=== PATIENT | female | born 1950 | race Caucasian/White ===

== ENCOUNTER 2020-11-29 09:56 | Inpatient (IN) | payer MEDICARE, OTHER ==
[2020-11-29] MEDS ORDERED: SODIUM CHLORIDE 0.9% 500 ML 500 ML IV STA (10:03)
--- NOTE | 2020-11-29 10:36 | ED ---
General Adult HPI - General Chief complaint: Seizure Stated complaint: Seizure Time Seen by Provider: 11/29/20 10:01 Source: patient, RN notes reviewed, old records reviewed Mode of arrival: ambulatory Limitations: no limitations - History of Present Illness Initial comments: 70-year-old female presenting with suspected seizure activity, unresponsiveness. Patient has history of dementia. She is currently living with her daughter. While eating breakfast this morning she became unresponsive, had right-sided shaking and this progressed to generalized convulsion. She presents to the emergency department by EMS. She is alert but nonverbal. The patient does have some speech abnormalities at baseline secondary to her dementia and daughter states she speaks in short sentences normally. There was no significant trauma reported. There is no previous seizure activity. - Related Data Allergies Allergy/AdvReac Type Severity Reaction Status Date / Time lidocaine Allergy Unknown Verified 11/29/20 10:15 Review of Systems ROS Statement: Those systems with pertinent positive or pertinent negative responses have been documented in the HPI. ROS Other: All systems not noted in ROS Statement are negative. Past Medical History Past Medical History: Dementia, Thyroid Disorder History of Any Multi-Drug Resistant Organisms: None Reported Past Surgical History: Unable to Obtain Smoking Status: Never smoker Past Alcohol Use History: None Reported Past Drug Use History: None Reported General Exam Limitations: no limitations General appearance: alert, in distress Head exam: Present: atraumatic, normocephalic Eye exam: Present: normal appearance, PERRL ENT exam: Present: normal exam Neck exam: Present: normal inspection. Absent: tenderness, meningismus Respiratory exam: Present: normal lung sounds bilaterally. Absent: respiratory distress, wheezes Cardiovascular Exam: Present: regular rate, normal rhythm GI/Abdominal exam: Present: soft. Absent: distended, tenderness, guarding Neurological exam: Present: alert, other (Patient will follow commands. She is moving extremities symmetrically but does not have full strength throughout.). Absent: oriented X3 Psychiatric exam: Present: anxious Skin exam: Present: warm, dry. Absent: cyanosis, diaphoretic Course Vital Signs 11/29/20 11/29/20 10:03 11:49 Temperature 97.6 F Pulse Rate 62 53 L Respiratory 18 18 Rate Blood Pressure 117/66 129/87 O2 Sat by Pulse 98 100 Oximetry EKG Findings - EKG Comments: EKG Findings:: EKG: Sinus bradycardia, rate 58, CO interval 146, QRS duration 64, QTC 463, no ST segment elevation, baseline artifact in V3. Medical Decision Making - Medical Decision Making 62-year-old female presenting with altered mental status, loss consciousness, suspected seizure. History does support new-onset seizure in this patient. Patient is postictal upon arrival. She has a nonfocal neurologic findings and will follow some simple commands. During her stay in the emergency department she has returned to her baseline mental status, without pain complaints, able to answer simple questions. Her daughter is at bedside. She has a normal CBC, normal CMP, head CT is performed which is negative for intracranial hemorrhage or mass effect. I suspect new onset seizure. She will be admitted for close observation and neurology on consultation. - Lab Data Result diagrams: 11/29/20 10:26 11/29/20 10:26 Lab Results 11/29/20 11/29/20 11/29/20 Range/Units 10:26 10:26 10:26 WBC 3.8 (3.8-10.6) k/uL RBC 4.73 (3.80-5.40) m/uL Hgb 15.1 (11.4-16.0) gm/dL Hct 43.6 (34.0-46.0) % MCV 92.3 (80.0-100.0) fL MCH 31.9 (25.0-35.0) pg MCHC 34.6 (31.0-37.0) g/dL RDW 12.1 (11.5-15.5) % Plt Count 257 (150-450) k/uL MPV 8.7 Neutrophils % 62 % Lymphocytes % 26 % Monocytes % 8 % Eosinophils % 1 % Basophils % 1 % Neutrophils # 2.4 (1.3-7.7) k/uL Lymphocytes # 1.0 (1.0-4.8) k/uL Monocytes # 0.3 (0-1.0) k/uL Eosinophils # 0.1 (0-0.7) k/uL Basophils # 0.0 (0-0.2) k/uL PT (9.0-12.0) sec INR (<1.2) APTT (22.0-30.0) sec Sodium 139 (137-145) mmol/L Potassium 4.1 (3.5-5.1) mmol/L Chloride 109 H (98-107) mmol/L Carbon Dioxide 21 L (22-30) mmol/L Anion Gap 9 mmol/L BUN 21 H (7-17) mg/dL Creatinine 0.74 (0.52-1.04) mg/dL Est GFR (CKD-EPI)AfAm >90 (>60 ml/min/1.73 sqM) Est GFR (CKD-EPI)NonAf 84 (>60 ml/min/1.73 sqM) Glucose 122 H (74-99) mg/dL Plasma Lactic Acid Oniel 1.9 (0.7-2.0) mmol/L Calcium 10.2 (8.4-10.2) mg/dL Magnesium 2.2 (1.6-2.3) mg/dL Total Bilirubin 0.8 (0.2-1.3) mg/dL AST 30 (14-36) U/L ALT 20 (4-34) U/L Alkaline Phosphatase 55 (38-126) U/L Troponin I (0.000-0.034) ng/mL Total Protein 6.9 (6.3-8.2) g/dL Albumin 4.1 (3.5-5.0) g/dL 11/29/20 11/29/20 Range/Units 10:26 10:26 WBC (3.8-10.6) k/uL RBC (3.80-5.40) m/uL Hgb (11.4-16.0) gm/dL Hct (34.0-46.0) % MCV (80.0-100.0) fL MCH (25.0-35.0) pg MCHC (31.0-37.0) g/dL RDW (11.5-15.5) % Plt Count (150-450) k/uL MPV Neutrophils % % Lymphocytes % % Monocytes % % Eosinophils % % Basophils % % Neutrophils # (1.3-7.7) k/uL Lymphocytes # (1.0-4.8) k/uL Monocytes # (0-1.0) k/uL Eosinophils # (0-0.7) k/uL Basophils # (0-0.2) k/uL PT 10.1 (9.0-12.0) sec INR 0.9 (<1.2) APTT 19.9 L (22.0-30.0) sec Sodium (137-145) mmol/L Potassium (3.5-5.1) mmol/L Chloride (98-107) mmol/L Carbon Dioxide (22-30) mmol/L Anion Gap mmol/L BUN (7-17) mg/dL Creatinine (0.52-1.04) mg/dL Est GFR (CKD-EPI)AfAm (>60 ml/min/1.73 sqM) Est GFR (CKD-EPI)NonAf (>60 ml/min/1.73 sqM) Glucose (74-99) mg/dL Plasma Lactic Acid Oniel (0.7-2.0) mmol/L Calcium (8.4-10.2) mg/dL Magnesium (1.6-2.3) mg/dL Total Bilirubin (0.2-1.3) mg/dL AST (14-36) U/L ALT (4-34) U/L Alkaline Phosphatase (38-126) U/L Troponin I <0.012 (0.000-0.034) ng/mL Total Protein (6.3-8.2) g/dL Albumin (3.5-5.0) g/dL Disposition Clinical Impression: New onset seizure Disposition: ADMITTED IP TO THIS [facility] Instructions (If sedation given, give patient instructions): Seizure/Epilepsy Discharge Instructions & Follow-Up Is patient prescribed a controlled substance at d/c from ED?: No Referrals: None,Stated [REFERRING] - 1-2 days Decision to Admit Reason: Admit from EC Decision Date: 11/29/20 Decision Time: 12:13
[2020-11-29 11:06] LABS: INR 0.9 (<1.2); Prothrombin Time 10.1 sec (9.0-12.0)
[2020-11-29 11:18] LABS: Basophils % (A) 1 %; Eosinophils # (A) 0.1 k/uL (0-0.7); Eosinophils % (A) 1 %; HCT 43.6 % (34.0-46.0); HGB 15.1 gm/dL (11.4-16.0); Lymphocytes % (A) 26 %; MCH 31.9 pg (25.0-35.0); MCHC 34.6 g/dL (31.0-37.0); MCV 92.3 fL (80.0-100.0); Mean Platelet Volume 8.7; Monocytes # (A) 0.3 k/uL (0-1.0); Monocytes % (A) 8 %; Neutrophils # (A) 2.4 k/uL (1.3-7.7); Neutrophils % (A) 62 %; Platelet Count 257 k/uL (150-450); RBC 4.73 m/uL (3.80-5.40); RDW 12.1 % (11.5-15.5); WBC 3.8 k/uL (3.8-10.6)
[2020-11-29 11:19] LABS: ALT 20 U/L (4-34); AST 30 U/L (14-36); African American GFR (CKD) >90 (>60 ml/min/1.73 sqM); Albumin 4.1 g/dL (3.5-5.0); Alkaline Phosphatase 55 U/L (38-126); Anion Gap 9 mmol/L; Blood Urea Nitrogen 21 mg/dL (7-17); Calcium 10.2 mg/dL (8.4-10.2); Carbon Dioxide 21 mmol/L (22-30); Chloride 109 mmol/L (98-107); Glucose 122 mg/dL (74-99); Magnesium 2.2 mg/dL (1.6-2.3); Non-African American GFR(CKD) 84 (>60 ml/min/1.73 sqM); Potassium 4.1 mmol/L (3.5-5.1); Sodium 139 mmol/L (137-145); Total Bilirubin 0.8 mg/dL (0.2-1.3); Total Protein 6.9 g/dL (6.3-8.2)
[2020-11-29 11:26] LABS: Partial Thromboplastin Time 19.9 sec (22.0-30.0)
--- NOTE | 2020-11-29 11:50 | CT ---
EXAMINATION TYPE: CT brain wo con DATE OF EXAM: 11/29/2020 COMPARISON: None HISTORY: Seizure CT DLP: 1111.[address] of the brain was performed. The ventricles, basal cisterns and sulci overlying the cerebral convexities demonstrate moderate enla rgement. There is no evidence for intracranial hemorrhage or sulcal effacement. There is decreased attenuation about the periventricular white matter and deep white matter of both c erebral hemispheres, compatible with chronic small vessel ischemia. Differential diagnosis does inclu de demyelination. No mass effects are seen.No midline shift. Osseous calvarium is intact. If symptoms persist consider MRI. IMPRESSION: 1. Age related atrophic and chronic small vessel ischemic change without acute intracranial process s een at this time.
--- NOTE | 2020-11-29 11:58 | XR ---
EXAMINATION TYPE: XR chest 1V portable DATE OF EXAM: 11/29/2020 COMPARISON: NONE HISTORY: Syncope TECHNIQUE: Single frontal view of the chest is obtained. FINDINGS: There is no focal air space opacity, pleural effusion, or pneumothorax seen. The cardiac silhouette size is within normal limits. Patient is rotated. Prominent lung volumes may be indicative of underlying COPD. Interstitium is mildly increased. Aorta is dense. Biapical pleural thickening is noted. There are overlying artifacts. The osseous structures are intact. IMPRESSION: No acute process.
[2020-11-29] MEDS ORDERED: NALOXONE 0.4 MG/ML 1 ML VIAL IV PRN (12:11)
[2020-11-29] MEDS ORDERED: levETIRAcetam IV 1,000 MG in SALINE 1 100ML.BAG IVPB STA (12:26)
[2020-11-29] MEDS: SODIUM CHLORIDE 0.9% 1,000 ML IV SCH (12:37)
[2020-11-29] MEDS ORDERED: LORazepam 2 MG/ML INJ IV PRN (14:35)
--- NOTE | 2020-11-29 15:22 | P.CNNES ---
History of Present Illness Consult date: 11/29/20 Requesting physician: Angel Benedict Reason for Consult: new onset seizure History of Present Illness: This is a 70-year-old woman with medical history of advanced dementia, hypothyroidism presented emergency department on 11/29/2020 after unresponsive and seizure-like activity. History is obtained from patient's daughter (Maya who is at bedside). It seems that the patient lives with her daughter and while she was eating breakfast this morning she became unresponsive she had right- sided that shaken and this progressed to generalized convulsion. The patient has loss of consiciouness. Pre the daughter the jerking episode lasted for 30 seconds and was post-ictal for few hours. Patient did not have any trauma to the head. As a result EMS was contacted. Per the daughter the patient has dementia and she speaks in short sentences baseline. She is alert oriented X1 (self only). Patient does not have any seizure in the past. No history of strokes or TIA's in the past the daughter is aware of. The patient is suppose to follow-up with a neurologist over [place], [place] end of November 2020. Patient is on Aricept 10 mg daily for dementia. Otherwise she is on multivitamins and Synthroid. Some of the basic workup in the hospital consisted of: Initial vital signs was blood pressure of 117/66, heart rate of 62, respiratory of 18, temperature of 97.6 Fahrenheit oral pulse ox of 98% room air. CBC with differential is unremarkable. Serum glucose is 122, sodium is 139, magnesium is 2.2, calcium 7.2. CT of the head is reported as age-related atrophic and chronic small vessel ischemic change without acute intracranial process seen at this time. Upon reviewing the CT of the head I felt the patient has diffuse generalized atrophy. EKG is reported as sinus bradycardia. Otherwise normal EKG. Review of Systems Review of system: Is limited because of her cooperation, but the peritent positive and negative per HPI. Past Medical History Past Medical History: Dementia, Thyroid Disorder History of Any Multi-Drug Resistant Organisms: None Reported Past Surgical History: Unable to Obtain Smoking Status: Never smoker Past Alcohol Use History: None Reported Past Drug Use History: None Reported Medications and Allergies Home Medications Medication Instructions Recorded Confirmed Type Donepezil [Aricept] 10 mg PO DAILY 11/29/20 11/29/20 History Levothyroxine Sodium [Synthroid] 100 mcg PO DAILY 11/29/20 11/29/20 History Multivitamins, Thera [Multivitamin 1 tab PO DAILY 11/29/20 11/29/20 History (formulary)] Allergies Allergy/AdvReac Type Severity Reaction Status Date / Time erythromycin base Allergy Rash/Hives Verified 11/29/20 12:35 [From Erythrocin] lidocaine AdvReac low bp & HR Verified 11/29/20 12:35 Physical Examination - Vital Signs Vital Signs: Vital Signs Temp Pulse Resp BP Pulse Ox 11/29/20 11:49 53 L 18 129/87 100 11/29/20 10:03 97.6 F 62 18 117/66 98 Intake and Output 11/28/20 11/29/20 11/29/20 22:59 06:59 14:59 Other: Weight 62.324 kg GENERAL: The patient is lying in bed and is not in acute distress. CHEST: The heart rate is regular rate rhythm. No murmurs to auscultation. No carotid bruit bilaterally. LUNG: Clear to auscultation bilaterally no wheezing noted throughout. Not labored breathing. ABDOMEN/GI: Bowel sounds present in all 4 quadrants. No tenderness to palpation throughout. NEUROLOGICAL: Higher mental function: The patient is awake, alert, oriented to self only (baseline). Patient is unable to name objects (pen, watch or glasses). Patient is following simple commands. Language is very limited. Does not appear she has neglect. Cranial nerves: The pupils are round, equal and reactive to light. Extraocular movement is tracking throughout the room and no nystagmus. No facial weakness. No dysarthria is noted. Otherwise could not assess rest of cranial nerves because of cooperaiton. Motor: Gait is deferred. The strength is moving all extremities above gravity without focality (per daughter patient has a right old shoulder problem). Normal tone and bulk. Cerebellum: Could not assess. Sensation: Could not asses. Reflexes (right/left): 2+ throughout except ankles are 1+. Plantars are mute bilaterally. Results - Laboratory Findings CBC and BMP: 11/29/20 10:26 11/29/20 10:26 Abnormal Lab Findings: Abnormal Labs 11/29/20 11/29/20 10:26 10:26 APTT 19.9 L Chloride 109 H Carbon Dioxide 21 L BUN 21 H Glucose 122 H Assessment and Plan Assessment: New onset seizure (but seems somewhat unsusual since nothing is reactive if she had GTC: wbc, plasma lactic vein, creatnine which are normal. This is not absolute). Advance Dementia with language deficit (is oriented X1. self). Hypothyroidism Plan: In the ED the patient was given Keppra 1 g once. I spoke with the daughter and will proceed with antiepileptic drug as maintenance rather than wait for another seizure. I will start Depakote 250mg 1 tab bid (not keppra since can cause behavioral issues). I ordered a routine EEG. Per the daughter the patient will not handle MRI Brain and will consider as outpatient. She is on seizure precaution seizure pads. Placed on Vitamin D3 daily since antiepileptic drugs can cause osteoporosis. Neuro every 4 hours neuro checks We'll defer the rest of the medical management to the primary team. Upon discharge the patient needs to follow up with a neurologist (she has an appointment by end of November 2020 at [place], [place]). The plan is discussed with her daughter and the primary team. Thank you for the consultation. Allan Hanks M.D. Neuro-hospitalist Time with Patient: Greater than 30
--- NOTE | 2020-11-29 17:07 | EEG ---
ELECTROENCEPHALOGRAM REPORT DATE OF SERVICE: 11/29/2020. CLINICAL HISTORY: This is a 70-year-old woman with a history of dementia who presented with new- onset seizure. The video EEG is obtained to evaluate for seizure epileptiform activity. RELEVANT MEDICATION: She received Keppra in the ED. EEG TYPE: A routine 21-channel EEG is performed with video using the 10/20 electrode placement system. DESCRIPTION: Wakefulness is obtained. During wakefulness, the background consists of posterior- dominant rhythm of low to moderate voltage of 6-7 hertz activity. At times the background consists of diffuse nonrhythmic [id number] voltage of theta as well as delta activity. There is no sleep architecture seen. There is no focal slowing seen. Interictal and ictal is none. ACTIVATION PROCEDURE: Photic stimulation did not evoke a posterior driving response. There is no abnormality during the photic stimulation. Hyperventilation is not performed. CLINICAL INTERPRETATION: This is an abnormal routine EEG. The background slowing is suggestive of moderate encephalopathy. There are no focal slowing, epileptiform discharges or seizure on the EEG. Clinical correlation is recommended. MMDON / MAYRAN: [id number] / DONNA
[2020-11-29] MEDS: ACETAMINOPHEN TAB 325 MG TAB PO PRN (17:41)
[2020-11-29] MEDS: CHOLECALCIFEROL 25 MCG (1000 IU) TABLET PO SCH (17:42)
[2020-11-29] MEDS: HEPARIN SODIUM,PORCINE/PF 5,000 UNIT/0.5 ML SYRINGE SQ SCH (19:54)
[2020-11-29] MEDS: DIVALPROEX 250 MG TABLET.DR PO SCH (19:55)
[2020-11-29] MEDS: FAMOTIDINE 20 MG/2 ML VIAL IV SCH (19:55)
[2020-11-29 20:17] VITALS: RESP 16
[2020-11-30] MEDS ORDERED: LEVOTHYROXINE 100 MCG TAB PO SCH (06:30)
[2020-11-30 07:59] VITALS: TEMP 98
[2020-11-30] MEDS: FAMOTIDINE 20 MG/2 ML VIAL IV SCH (08:37)
[2020-11-30] MEDS: DIVALPROEX 250 MG TABLET.DR PO SCH (08:42)
[2020-11-30] MEDS: CHOLECALCIFEROL 25 MCG (1000 IU) TABLET PO SCH (08:42)
[2020-11-30] MEDS: HEPARIN SODIUM,PORCINE/PF 5,000 UNIT/0.5 ML SYRINGE SQ SCH (08:42)
[2020-11-30] MEDS: ACETAMINOPHEN TAB 325 MG TAB PO PRN (08:42)
[2020-11-30] MEDS: SODIUM CHLORIDE 0.9% 1,000 ML IV SCH ×2 (08:43→13:51)
[2020-11-30] MEDS ORDERED: DONEPEZIL 10 MG TAB PO SCH (09:00)
--- NOTE | 2020-11-30 10:37 | P.HPIM ---
History of Present Illness This is a pleasant 70 years old female with past medical history of advanced dementia and hypothyroidism. Patient is poor historian and information were obtained from the daughter at bedside The daughter is her caregiver after her a few years ago as per daughter. Patient is confused, she does not know her name even when asked. As per daughter she does not ask for help to get food or to be cleaned S when somebody take care of her. She answers with". She is disoriented to the surrounding. She cannot manage her ADL or AIDL activities. Patient was sitting on her breakfast chair when she stumbled down and start shaking all over her body for about 45 seconds as per daughter was at her side and helped to hold her. Patient had no urine or bowel incontinence. No tongue biting. He was postictal for about 2 hours where she woke up in the emergency room. The patient cannot provide information and she denies any specific symptoms for me. No pain Review of Systems n/a patient is poor historian due to her dementia Past Medical History Past Medical History: Dementia, Thyroid Disorder History of Any Multi-Drug Resistant Organisms: None Reported Past Surgical History: Unable to Obtain Smoking Status: Never smoker Past Alcohol Use History: None Reported Past Drug Use History: None Reported - Past Family History Mother Family Medical History: CVA/TIA, Dementia Father Family Medical History: CVA/TIA Medications and Allergies Home Medications Medication Instructions Recorded Confirmed Type Donepezil [Aricept] 10 mg PO DAILY 11/29/20 11/29/20 History Levothyroxine Sodium [Synthroid] 100 mcg PO DAILY 11/29/20 11/29/20 History Multivitamins, Thera [Multivitamin 1 tab PO DAILY 11/29/20 11/29/20 History (formulary)] Allergies Allergy/AdvReac Type Severity Reaction Status Date / Time erythromycin base Allergy Rash/Hives Verified 11/29/20 12:35 [From Erythrocin] lidocaine AdvReac low bp & HR Verified 11/29/20 12:35 Physical Exam Vitals: Vital Signs Temp Pulse Resp BP Pulse Ox 11/29/20 11:49 53 L 18 129/87 100 11/29/20 10:03 97.6 F 62 18 117/66 98 Intake and Output 11/28/20 11/29/20 11/29/20 22:59 06:59 14:59 Other: Weight 62.324 kg -GENERAL: The patient is confused, not in any acute distress. Well developed, well nourished. HEENT: Pupils are round and equally reacting to light. EOMI. No scleral icterus. No conjunctival pallor. Normocephalic, atraumatic. No pharyngeal erythema. No thyromegaly. CARDIOVASCULAR: S1 and S2 present. No murmurs, rubs, or gallops. PULMONARY: Chest is clear to auscultation, no wheezing or crackles. ABDOMEN: Soft, nontender, nondistended, normoactive bowel sounds. No palpable organomegaly. MUSCULOSKELETAL: No joint swelling or deformity. EXTREMITIES: No cyanosis, clubbing, or pedal edema. NEUROLOGICAL: Gross neurological examination did not reveal any focal deficits. SKIN: No rashes. No petechiae Results CBC & Chem 7: 11/29/20 10:26 11/29/20 10:26 Labs: Abnormal Lab Results - Last 24 Hours (Table) 11/29/20 11/29/20 Range/Units 10:26 10:26 APTT 19.9 L (22.0-30.0) sec Chloride 109 H (98-107) mmol/L Carbon Dioxide 21 L (22-30) mmol/L BUN 21 H (7-17) mg/dL Glucose 122 H (74-99) mg/dL Assessment and Plan Assessment: Seizure, new onset Advanced dementia Hypothyroidism Plan: This is a pleasant 70 years old female who presents with seizure Neurology consult. EEG Patient has advanced dementia and I discussed with daughter at bedside she might be eligible for palliative consult and she agrees for the consult as an outpatient Labs and medication were reviewed.. Continue same treatment. Continue with symptomatic treatment. Resume home medication. Monitor lytes and vitals. DVT and GI prophylaxis. Further recommendations depends on the clinical course of the patient Prognosis is guarded
[2020-11-30 11:05] VITALS: BP 111/68; PULSE 69
--- NOTE | 2020-11-30 14:49 | P.PN ---
Subjective Progress Note Date: 11/30/20 Patient seen at bedside and she is accompanied with her daughter and she stated that the patient's about the same and no further seizure like activity. Objective - Vital Signs Vital signs: Vital Signs Temp 98.0 F 11/30/20 11:03 Pulse 69 11/30/20 11:03 Resp 16 11/30/20 11:03 BP 111/68 11/30/20 11:03 Pulse Ox 99 11/30/20 11:03 Intake & Output 11/29/20 11/30/20 11/30/20 18:59 06:59 18:59 Weight 62.324 kg Other: Voiding Method Toilet Toilet Diaper Diaper # Voids 1 # Bowel Movements 1 - Exam GENERAL: The patient is lying in bed and is not in acute distress. CHEST: The heart rate is regular rate rhythm. No murmurs to auscultation. No carotid bruit bilaterally. LUNG: Clear to auscultation bilaterally no wheezing noted throughout. Not labored breathing. ABDOMEN/GI: Bowel sounds present in all 4 quadrants. No tenderness to palpation throughout. NEUROLOGICAL: Higher mental function: The patient is awake, alert, oriented to self only (baseline). Patient is unable to name objects (pen, watch or glasses). Patient is following simple commands. Language is very limited. Does not appear she has neglect. Cranial nerves: The pupils are round, equal and reactive to light. Extraocular movement is tracking throughout the room and no nystagmus. No facial weakness. No dysarthria is noted. Otherwise could not assess rest of cranial nerves because of cooperaiton. Motor: Gait is deferred. The strength is moving all extremities above gravity without focality (per daughter patient has a right old shoulder problem). N ormal tone and bulk. Cerebellum: Could not assess. Sensation: Could not asses. Reflexes (right/left): 2+ throughout except ankles are 1+. Plantars are mute bilaterally. WORK-UP: CT of the head is reported as age-related atrophic and chronic small vessel ischemic change without acute intracranial process seen at this time. Upon reviewing the CT of the head I felt the patient has diffuse generalized atrophy. EKG is reported as sinus bradycardia. Otherwise normal EKG. Routine EEG on the 11/29/2020 and is an abnormal routine EEG. The background slowing suggestive of moderate encephalopathy. There are no focal slowing, epileptiform discharges or seizure on the EEG. - Labs CBC & Chem 7: 11/29/20 10:26 11/29/20 10:26 Assessment and Plan Assessment: New onset seizure (but seems somewhat unsusual since nothing is reactive if she had GTC: wbc, plasma lactic vein, creatnine which are normal. This is not absolute). Advance Dementia with language deficit (is oriented X1. self). Hypothyroidism Plan: Continue Depakote 250mg 1 tab bid (not keppra since can cause behavioral issues). Per the daughter the patient will not handle MRI Brain and will possilby consider as outpatient . She is on seizure precaution seizure pads. Placed on Vitamin D3 daily since antiepileptic drugs can cause osteoporosis. Neuro every 4 hours neuro checks We'll defer the rest of the medical management to the primary team. Upon discharge the patient needs to follow up with a neurologist (she has an appointment by end of November 2020 at [place], [place]). The plan is discussed with her daughter. There is no further work-up. She is clear from neurological perspective. Allan Hanks M.D. Neuro-hospitalist Time with Patient: Less than 30
[2020-11-30] MEDS ORDERED: FAMOTIDINE 20 MG TAB PO SCH (21:00)
== END 2020-11-30 16:27 | disposition home or self-care (01) | DRG 101 ==
LOC: EC 09:56 → 5NMEDONC 12:13
PROVIDERS: ADMIT Internal Medicine; ATTEND Internal Medicine
DX: R56.9 Unspecified convulsions (principal); E03.9 Hypothyroidism, unspecified; F03.90 Unspecified dementia, unspecified severity, without behavioral disturbance, psychotic disturbance, mood disturbance, and anxiety; Z79.890 Hormone replacement therapy; Z79.899 Other long term (current) drug therapy
CPT/HCPCS: 70450; 71045; 80053; 83605; 83735; 84484; 85025; 85610; 85730; 87635; 93005; 95816; 96360; 96361; 99285